=== PATIENT | male | born 1960 | race Caucasian/White ===

== ENCOUNTER 2017-08-19 07:17 | Emergency (ER) | payer BC ==
[~2017-08-19] VITALS: Ht 185.4 cm; Wt 120.2 kg
[2017-08-19 07:24] VITALS: BP 154/94
== END 2017-08-19 07:39 | disposition home or self-care (01) ==
LOC: ER 07:19
DX: L02.11 Cutaneous abscess of neck (principal); Z60.2 Problems related to living alone
CPT/HCPCS: A4606; Z7610

== ENCOUNTER 2017-08-22 19:31 | Emergency (ER) | payer BC ==
--- NOTE | 2017-08-22 20:40 | NUR ---
CALLED X2; NO ANSWER
--- NOTE | 2017-08-22 21:11 | NUR ---
STILL NOT IN LOBBY FOR TRIAGE. INFORMED "PT LEFT"
== END 2017-08-22 21:12 | disposition left against medical advice (07) ==
LOC: ER 19:33
DX: Z53.21 Procedure and treatment not carried out due to patient leaving prior to being seen by health care provider (principal)